=== PATIENT | female | born 1955 | race Caucasian/White ===

== ENCOUNTER 2024-11-20 15:13 | Emergency (ER) | payer MEDICAID ==
[~2024-11-20] VITALS: Ht 167.6 cm; Wt 74.8 kg
[2024-11-20 15:47] LABS: BASOPHILS # (AUTO) 0.2 K/uL (0.0-0.2); BASOPHILS % (AUTO) 1.1 % (0.0-2.0); EOSINOPHILS # (AUTO) 0.4 K/uL (0.0-0.7); HEMATOCRIT 39 % (33-45); HEMOGLOBIN 12.9 g/dL (11.5-14.8); LYMPHOCYTES # (AUTO) 4.4 K/uL (0.8-4.8); LYMPHOCYTES % (AUTO) 29.8 % (20.0-44.0); MEAN CORPUSCULAR HEMOGLOBIN 29 PG (26.0-33.0); MEAN CORPUSCULAR HGB CONC 33 g/dl (31.0-36.0); MEAN CORPUSCULAR VOLUME 88 fL (82-100); MONOCYTES # (AUTO) 1.3 K/uL (0.1-1.30); MONOCYTES % (AUTO) 8.6 % (2.0-12.0); NEUTROPHILS # (AUTO) 8.5 K/uL (1.8-8.9); NEUTROPHILS % (AUTO) 57.5 % (43.0-81.0); PLATELET COUNT (AUTO) 293 K/uL (150-450); RED BLOOD CELL COUNT(AUTO) 4.47 MIL/uL (4.0-5.2); WHITE BLOOD COUNT (AUTO) 14.8 K/uL (4.3-11.0)
[2024-11-20] MEDS ORDERED: PANT40TA49 PO (16:00)
[2024-11-20] MEDS ORDERED: HYDR-4303 PO (16:00)
[2024-11-20] MEDS ORDERED: SIMV-46 PO (16:00)
[2024-11-20] MEDS ORDERED: HYDR-3980 PO (16:00)
[2024-11-20 16:03] LABS: ALANINE AMINOTRANSFERASE 30 U/L (12-78); ALKALINE PHOSPHATASE 79 U/L (46-116); ASPARTATE AMINOTRANSFERASE 30 U/L (15-37); BILIRUBIN,DIRECT 0.1 mg/dL (0.0-0.2); BILIRUBIN,TOTAL 0.2 mg/dL (0.2-1.0); CALCIUM, SERUM 9.2 mg/dL (8.5-10.1); CARBON DIOXIDE 26 mmol/L (21-32); CHLORIDE 97 mmol/L (98-107); CREATININE 1.5 mg/dL (0.6-1.3); LIPASE 81 U/L (16-77); POTASSIUM 4.4 mmol/L (3.5-5.1); SODIUM SERUM 132 mmol/L (136-145); TOTAL PROTEIN, SERUM 7.5 g/dL (6.4-8.2); UREA NITROGEN, BLOOD 40 mg/dL (7-18)
[2024-11-20 16:04] LABS: GLUCOSE 514 mg/dL (74-106)
[2024-11-20 16:09] LABS: NT-PRO BNP 106 pg/mL (0-125)
[2024-11-20 16:10] LABS: ACETONE, SERUM NEGATIVE (NEGATIVE)
[2024-11-20] MEDS: IV NS 0.9% 1,000 ML BAG IV ONE (16:19)
[2024-11-20] MEDS ORDERED: INSULIN REGULAR, HUMAN 100 UNIT/ML 10 ML VIAL ONE (16:23)
[2024-11-20] MEDS: INSULIN REGULAR, HUMAN 100 UNIT/ML 10 ML VIAL SQ ONE (16:32)
[2024-11-20 16:36] LABS: APPEARANCE,URINE CLEAR (CLEAR); BILIRUBIN,URINE NEGATIVE (NEGATIVE); BLOOD, URINE NEGATIVE Ery/uL (NEGATIVE); COLOR,URINE YELLOW (YELLOW); KETONES,URINE NEGATIVE (NEGATIVE); LEUKOCYTE ESTERASE ,URINE NEGATIVE (NEGATIVE); NITRITE, URINE NEGATIVE (NEGATIVE); PROTEIN,URINE NEGATIVE (NEGATIVE); UGLUCOSE 3+ mg/dL (NEGATIVE); UROBILINOGEN,URINE 0.2 EU/dL (0.2)
[2024-11-20 17:41] VITALS: BP 117/74; TEMP 97.4; O2SAT 98
[2024-11-20 18:26] LABS: ADD URINE CULTURE NO; BACTERIA,URINE None seen /HPF (None Seen); RBC,URINE 0-2 /HPF (0-2); SQUAMOUS EPITHELIAL CELL,UR 0-2 /HPF (None Seen); WBC,URINE 0-2 /HPF (0-3)
[2024-11-21 10:02] LABS: SITE, VBG VBG - N/A; VBG BASE EXCESS -1.2 mmol/L (-2.0-3.0); VBG COHb 0.1 % (0.5-1.5); VBG HCO3 23.9 mmol/L (22.0-29.0); VBG MetHb 0.6 % (0.5-1.5); VBG O2Hb 68.2 % (0-79); VBG OXYGEN SATURATION 68.7 % (60.0-85.0); VBG PCO2 41.6 mmHg (38.0-54.0); VBG PH 7.378 (7.320-7.430); VBG TOTAL HEMOGLOBIN 13.2 G/dL (12.0-16.0)
== END 2024-11-20 17:45 ==
LOC: ER 15:25
DX: E11.65 Type 2 diabetes mellitus with hyperglycemia (principal); I10 Essential (primary) hypertension; Z79.899 Other long term (current) drug therapy; Z86.73 Personal history of transient ischemic attack (TIA), and cerebral infarction without residual deficits
CPT/HCPCS: 99285; 96360; 71045; 96361; 93005; 82803; 85025; 80048; 87086; 82010; 83690; 80076; 81001; 36415; 84484; 83880; 82962 ×2; J1815; J7030